=== PATIENT | female | born 1950 | race Caucasian/White ===

== ENCOUNTER 2021-09-08 04:29 | Day surgery (SDC) | payer OTHER, BC ==
[2021-09-07 13:09] VITALS: BMI 30.8
[2021-09-08] MEDS ORDERED: fentaNYL CITRATE 250 MCG/5 ML VIAL ONE (10:42)
[2021-09-08] MEDS ORDERED: MIDAZOLAM HCL 2 MG/2 ML SINGLE DOSE VIAL ONE (10:43)
[2021-09-08] MEDS ORDERED: LIDOCAINE HCL/PF 2% SDV 5ML VIAL ONE ×2 (10:45→12:47)
[2021-09-08] MEDS ORDERED: BUPIVACAINE HCL/PF 0.5% (5MG/ML) 10 ML VIAL ONE (10:54)
[2021-09-08] MEDS ORDERED: ceFAZolin SODIUM 1 GM VIAL IVPB ONE (11:43)
[2021-09-08] MEDS ORDERED: ONDANSETRON 4 MG/2 ML VIAL IVPUSH PRN (12:42)
[2021-09-08] MEDS ORDERED: ROCURONIUM BROMIDE 50 MG/5 ML SYRINGE ONE (12:42)
[2021-09-08] MEDS ORDERED: LACTATED RINGERS SOLUTION 1,000 ML IV SCH (12:45)
[2021-09-08] MEDS ORDERED: SEVOFLURANE 250 ML BTL ONE (12:46)
[2021-09-08] MEDS ORDERED: KETOROLAC TROMETHAMINE 30 MG/1 ML VIAL ONE (12:47)
[2021-09-08] MEDS ORDERED: ceFAZolin SODIUM 1 GM VIAL ONE (12:47)
[2021-09-08] MEDS ORDERED: DEXAMETHASONE SOD PHOSPHATE 4 MG/1 ML VIAL ONE (12:47)
[2021-09-08] MEDS ORDERED: NEOSTIGMINE METHYLSULFATE 0.5 MG/ML - 10 ML MDV ONE (13:19)
[2021-09-08] MEDS ORDERED: GLYCOPYRROLATE 0.2 MG/1 ML VIAL ONE (13:19)
[2021-09-08] MEDS ORDERED: BUPIVACAINE HCL/PF 0.5% (5 MG/ML) 30 ML VIAL IJ ONE (13:21)
[2021-09-08 15:54] VITALS: BP 123/66; PULSE 71; TEMP 97.5
== END 2021-09-08 16:11 | disposition home or self-care (01) ==
LOC: JASU-SURG 04:29
PROVIDERS: ATTEND Surgery
PROC: 0FT44ZZ Resection of Gallbladder, Percutaneous Endoscopic Approach (ICD-10-PCS; principal; 2021-09-08 10:30)
DX: K80.46 Calculus of bile duct with acute and chronic cholecystitis without obstruction (principal); K66.0 Peritoneal adhesions (postprocedural) (postinfection)
CPT/HCPCS: 82962; 88304-TC; 94760